=== PATIENT | male | born 2000 | race Caucasian/White ===

== ENCOUNTER 2019-12-22 15:29 | Emergency (ER) | payer OTHER ==
[2019-12-22 15:36] VITALS: BP 154/74; PULSE 85; RESP 18; TEMP 98.4
[2019-12-22] MEDS ORDERED: LORazepam 1 MG TAB PO STA (16:33)
--- NOTE | 2019-12-22 17:02 | ED ---
Anxiety HPI - General Chief Complaint: Anxiety Stated Complaint: Anxiety Attack Time Seen by Provider: 12/22/19 16:06 Source: patient Mode of arrival: wheelchair - History of Present Illness Initial Comments: Patient is a 19-year-old male presenting to the emergency Department with complaints of having a panic attack at work about 2 hours prior to arrival. Patient states he does have history of anxiety but currently does not take any medications. Patient states he has only had 1 other panic attack like this in the past. He states he did come to the ER and received medication which did help. He states at the time of the panick attack he was having chest tightness, shortness of breath. He states that shortly after, he felt very fatigued. Presently, patient is in no acute distress. He states he feels very tired otherwise no chest pain or tightness. He denies any shortness of breath, fever, chills. He denies any nausea or vomiting. He has no further complaints at this time. Upon arrival to the ER his vitals are stable. - Related Data Home Medications: Previous Rx's Medication Instructions Recorded LORazepam [Ativan] 0.5 mg PO HS 3 Days #3 tab 12/22/19 Allergies/Adverse Reactions: Allergies Allergy/AdvReac Type Severity Reaction Status Date / Time bee pollen Allergy Unknown Verified 12/22/19 17:26 Review of Systems ROS Statement: Those systems with pertinent positive or pertinent negative responses have been documented in the HPI. ROS Other: All systems not noted in ROS Statement are negative. Past Medical History Past Medical History: No Reported History History of Any Multi-Drug Resistant Organisms: None Reported Past Surgical History: No Surgical Hx Reported Past Psychological History: Anxiety Smoking Status: Never smoker Past Alcohol Use History: Occasional Past Drug Use History: None Reported General Exam - General Exam Comments Initial Comments: GENERAL: Patient is well-developed and well-nourished. Patient is nontoxic and in no acute distress, mildly anxious. HEAD: Atraumatic, normocephalic. EYES: Pupils equal round and reactive to light, extraocular movements intact, sclera anicteric, conjunctiva are normal. Eyelids were unremarkable. ENT: TMs normal, nares patent, oropharynx clear without exudates. Moist mucous membranes. NECK: Normal range of motion, supple without lymphadenopathy or JVD. LUNGS: Unlabored respirations. Breath sounds clear to auscultation bilaterally and equal. No wheezes rales or rhonchi. HEART: Regular rate and rhythm without murmurs, rubs or gallops. ABDOMEN: Soft, nontender, normoactive bowel sounds. No guarding, no rebound. No masses appreciated. : Deferred MUSCULOSKELETAL: Normal extremities with adequate strength and normal range of motion, no pitting or edema. No clubbing or cyanosis. NEUROLOGICAL: Patient is alert and oriented x 3. Motor and sensory are also intact. Cranial nerves II through XII grossly intact. Symmetrical smile. Normal speech, normal gait. PSYCH: Normal mood, normal affect. SKIN: Warm, Dry, normal turgor, no rashes or lesions noted. Limitations: no limitations Course Vital Signs 12/22/19 15:33 Temperature 98.4 F Pulse Rate 85 Respiratory 18 Rate Blood Pressure 154/74 O2 Sat by Pulse 100 Oximetry Medical Decision Making - Medical Decision Making Patient is a 19-year-old male here for an anxiety attack that happened 2 hours prior to arrival. Currently he is in no acute distress, his vitals are stable. His exam is unremarkable. EKG reveals no acute changes. I did give patient 1 mg of Ativan. He is resting comfortably and feels improvement in the symptoms. I discussed with patient that he needs to see his PCP regarding his anxiety. I will given a prescription for 3 tablets of Ativan to take for future anxiety attacks. Patient is in agreement with this plan of care. He is stable for discharge. Return parameters were discussed with the patient he verbalizes understanding. - EKG Data EKG Comments: Normal sinus rhythm with sinus arrhythmia, normal ECG, no signs of acute ischemia. Ventricular rate 66, AZ interval 168, QTC 372. Disposition Clinical Impression: Acute anxiety, Panic attack Disposition: HOME SELF-CARE Condition: Stable Instructions (If sedation given, give patient instructions): Generalized Anxiety Disorder (ED) Additional Instructions: Please return to the Emergency Department if symptoms worsen or any other concerns. May take medication for future panic attacks. I recommend following up with her PCP. Prescriptions: LORazepam [Ativan] 0.5 mg PO HS 3 Days #3 tab Is patient prescribed a controlled substance at d/c from ED?: No Referrals: Robb Menendez MD [Primary Care Provider] - 1-2 days
== END 2019-12-22 18:01 | disposition home or self-care (01) ==
LOC: EC 15:29
DX: F41.0 Panic disorder [episodic paroxysmal anxiety] (principal); Z91.030 Bee allergy status
CPT/HCPCS: 93005; 99283